=== PATIENT | female | born 1985 | race Caucasian/White ===

== ENCOUNTER → 2017-05-19 | Outpatient (CLI) | payer OTHER ==
[2017-05-19 20:18] LABS: PROGESTERONE 1.9 NG/ML; PROLACTIN 13.3 NG/ML
[2017-05-19 20:19] LABS: FOLLICLE STIMULATING HORMONE 3.7 mIU/mL
[2017-05-19 20:22] LABS: FREE T4 0.89 NG/DL (0.76-1.46)
== END ==
LOC: M SMT 13:43
PROVIDERS: ATTEND Specialist
DX: N93.8 Other specified abnormal uterine and vaginal bleeding (principal)

== ENCOUNTER → 2017-05-19 | Outpatient (REF) | payer OTHER | LOC: M LAB REF 18:50 | PROVIDERS: ATTEND Specialist | DX: Z12.4 Encounter for screening for malignant neoplasm of cervix (principal) ==

== ENCOUNTER → 2018-03-19 | Outpatient (CLI) | payer OTHER | LOC: M RAD 13:00 | DX: M79.671 Pain in right foot (principal); M79.672 Pain in left foot | CPT/HCPCS: 73630 ==

== ENCOUNTER → 2019-03-21 | Outpatient (REF) | payer BC, OTHER ==
[~2019-03-21] MED LIST: IBUP-1022 PO; ZYRTTAB8 PO
[2019-03-23 14:31] LABS: HPV HYBRID CAPTURE II Negative (Negative)
== END ==
LOC: M LAB REF 17:09
PROVIDERS: ATTEND Specialist
DX: Z12.4 Encounter for screening for malignant neoplasm of cervix (principal)

== ENCOUNTER → 2019-11-05 | Outpatient (CLI) | payer BC | LOC: M LABSMTC 13:43 | PROVIDERS: ATTEND Family Medicine | DX: Z11.59 Encounter for screening for other viral diseases (principal); Z20.828 Contact with and (suspected) exposure to other viral communicable diseases ==

== ENCOUNTER 2020-01-30 14:35 | Emergency (ER) | payer BC ==
[~2020-01-30] VITALS: Ht 157.5 cm; Wt 80.9 kg
[2020-01-30] MEDS ORDERED: MONT10TA4 (14:42)
[2020-01-30] MEDS ORDERED: AZEL0.055 (14:42)
[2020-01-30] MEDS ORDERED: SUPPLEMENT (14:42)
[2020-01-30] MEDS ORDERED: EMVE100C2 (16:02)
[2020-01-30 16:23] LABS: BASO # 0.1 10^3/uL (0.0-0.2); BASO % 0.6 % (0.0-1.0); EOS # 1.1 10^3/uL (0.0-0.5); EOS % 10.4 % (0.0-3.0); HEMATOCRIT 43.1 % (36.0-47.0); HEMOGLOBIN 14.2 g/dl (12.0-15.5); LYMPH # 2.6 10^3/uL (1.5-5.0); LYMPH % 23.9 % (24.0-44.0); MEAN CORPUSCULAR HEMOGLOBIN 29.7 pg (27.0-33.0); MEAN CORPUSCULAR HGB CONC 32.9 g/dl (32.0-36.5); MEAN CORPUSCULAR VOLUME 90.2 fl (80.0-96.0); MONO # 0.6 10^3/uL (0.0-0.8); MONO % 5.2 % (0.0-5.0); NEUTROPHILS # 6.4 10^3/uL (1.5-8.5); NEUTROPHILS % 59.5 % (36.0-66.0); PLATELET COUNT, AUTOMATED 329 10^3/uL (150-450); RED BLOOD COUNT 4.78 10^6/uL (4.00-5.40); WHITE BLOOD COUNT 10.8 10^3/uL (4.0-10.0)
[2020-01-30 16:39] LABS: ALBUMIN 4.1 GM/DL (3.2-5.2); ALT/SGPT 19 U/L (12-78); BILIRUBIN,DIRECT 0.1 MG/DL (0.0-0.2); BILIRUBIN,TOTAL 0.5 MG/DL (0.2-1.0); LIPASE 131 U/L (73-393); TOTAL PROTEIN 7.4 GM/DL (6.4-8.2)
[2020-01-30 16:56] LABS: HCG, SERUM QUALITATIVE NEGATIVE (NEGATIVE)
[2020-01-30 18:00] VITALS: BP 112/71
--- NOTE | 2020-01-31 10:26 | REP ---
RIGHT UPPER QUADRANT ULTRASOUND: Real-time sonographic evaluation of the right upper quadrant performed. The patient has had prior cholecystectomy. There is no intrahepatic or extrahepatic biliary dilatation, common bile duct measuring 5 mm. Liver demonstrates no mass. Pancreas is grossly unremarkable, not well seen due to overlying bowel gas particularly in the region of the tail of the pancreas. Right kidney demonstrates no hydronephrosis with normal size 10.1 cm in length. There is no free fluid. IMPRESSION: Negative right upper quadrant ultrasound status post cholecystectomy. Electronically Signed by Bhavin Arthur MD 01/31/2020 07:32 P
== END 2020-01-30 19:00 | disposition home or self-care (01) ==
LOC: M ED 14:35
DX: R10.84 Generalized abdominal pain (principal); R19.7 Diarrhea, unspecified; J45.909 Unspecified asthma, uncomplicated; Z79.899 Other long term (current) drug therapy; Z88.0 Allergy status to penicillin; Z88.1 Allergy status to other antibiotic agents

== ENCOUNTER → 2020-03-07 | Outpatient (CLI) | payer BC ==
[~2020-03-07] MED LIST changes: +AZEL0.055; +EMVE100C2; +MONT10TA4; +SUPPLEMENT
[2020-04-09 09:38] LABS: BASO # 0.1 10^3/uL (0.0-0.2); BASO % 0.5 % (0.0-1.0); EOS # 0.1 10^3/uL (0.0-0.5); EOS % 0.9 % (0.0-3.0); HEMATOCRIT 41.4 % (36.0-47.0); HEMOGLOBIN 13.6 g/dl (12.0-15.5); LYMPH % 17.7 % (24.0-44.0); MEAN CORPUSCULAR HGB CONC 32.9 g/dl (32.0-36.5); MEAN CORPUSCULAR VOLUME 91.2 fl (80.0-96.0); MONO # 0.6 10^3/uL (0.0-0.8); MONO % 5.3 % (0.0-5.0); NEUTROPHILS # 8.5 10^3/uL (1.5-8.5); NEUTROPHILS % 75.2 % (36.0-66.0); PLATELET COUNT, AUTOMATED 325 10^3/uL (150-450); RED BLOOD COUNT 4.54 10^6/uL (4.00-5.40); WHITE BLOOD COUNT 11.3 10^3/uL (4.0-10.0)
[2020-04-21 13:57] LABS: FREE T4 0.83 NG/DL (0.76-1.46); PERCENT SATURATION 19.9 % (13.2-45.0); THYROID STIMULATING HORMONE 2.44 uIU/ML (0.358-3.740); URIC ACID 3.9 MG/DL (2.6-6.0)
== END ==
LOC: M LAB 16:57
PROVIDERS: ATTEND Internal Medicine
DX: D50.9 Iron deficiency anemia, unspecified (principal); R53.83 Other fatigue; E03.9 Hypothyroidism, unspecified; M10.9 Gout, unspecified